=== PATIENT | female | born 1945 | race Caucasian/White ===

== ENCOUNTER → 2020-03-14 | Outpatient (CLI) | payer MEDICARE, OTHER ==
[~2020-03-14] VITALS: Ht 157.5 cm; Wt 88.5 kg
[~2020-03-14] MED LIST: ARTHRI-FLEX TA1 EACH PO; CALTRATE 600MG600 MG PO; CIMZIA400 MG/2 M IM; ELIQUIS2.5 MG PO; FLONASE ALLER15.8 ML; GABAPENTIN600 MG PO; HYDROCHLOROTHIA25 MG PO; HYDROCODON-ACE1 EAC4 PO; LEVOCETIRIZINE D5 MG PO; LOPRESSOR 25 MG25 MG PO; LORTAB 7.5-3251 EACH PO; MICARDIS40 MG PO; ORENCIA 250 MG250 MG INJ; PLAQUENIL 200200 MG PO; POTASSIUM CHLO10 ME2 PO; PREDNISONE 1 MG1 MG PO; PREDNISONE5 MG PO; SINGULAIR10 MG PO; TIZANIDINE PO; TYLENOL 8 HOUR650 MG PO; VITAMIN D250000 UNIT PO
== END ==
LOC: OPSV 11:00
DX: M06.9 Rheumatoid arthritis, unspecified (principal)
CPT/HCPCS: 96365; 96375; J0129; J1720

== ENCOUNTER → 2020-03-28 | Outpatient (CLI) | payer MEDICARE, OTHER ==
[~2020-03-28] VITALS: Ht 157.5 cm; Wt 88.5 kg
== END ==
LOC: OPSV 10:50
DX: M06.9 Rheumatoid arthritis, unspecified (principal)
CPT/HCPCS: 96365; 96375; J0129; J1720

== ENCOUNTER → 2020-04-11 | Outpatient (CLI) | payer MEDICARE, OTHER ==
[~2020-04-11] VITALS: Ht 157.5 cm; Wt 88.5 kg
== END ==
LOC: OPSV 11:00
DX: M06.9 Rheumatoid arthritis, unspecified (principal)
CPT/HCPCS: 96365; 96375; J0129; J1720

== ENCOUNTER → 2020-05-09 | Outpatient (CLI) | payer MEDICARE, OTHER ==
[~2020-05-09] VITALS: Ht 157.5 cm; Wt 88.5 kg
== END ==
LOC: OPSV 11:00
DX: M06.9 Rheumatoid arthritis, unspecified (principal)
CPT/HCPCS: 96365; 96375; J0129; J1720

== ENCOUNTER → 2020-06-02 | Outpatient (CLI) | payer MEDICARE, OTHER ==
[2020-06-02 11:46] LABS: HEMOGLOBIN 12.9 gm/dl (12.3-15.3); RED BLOOD COUNT 4.28 M/UL (4.00-5.10); WHITE BLOOD COUNT 10.1 K/UL (4.5-11.0)
== END ==
LOC: OPSV2 10:30 → EDSTATUS 10:30 → OPSV2 10:38
PROVIDERS: Orthopaedic Surgery
DX: Z01.818 Encounter for other preprocedural examination (principal); M06.9 Rheumatoid arthritis, unspecified; J98.4 Other disorders of lung; Z88.1 Allergy status to other antibiotic agents
CPT/HCPCS: 36415; 71046; 80048; 81001; 85025; 87077; 87081; 87086; 87186; 93005

== ENCOUNTER → 2020-06-14 | Outpatient (CLI) | payer MEDICARE, OTHER ==
[2020-06-14 11:20] LABS: BUN/CREATININE RATIO 20 (0-10)
== END ==
LOC: LAB 09:39
PROVIDERS: Orthopaedic Surgery
DX: Z01.812 Encounter for preprocedural laboratory examination (principal)
CPT/HCPCS: 36415; 80048; 86850; 86900; 86901

== ENCOUNTER 2020-06-15 06:16 | Day surgery (SDC) | payer MEDICARE, OTHER ==
[~2020-06-15] VITALS: Ht 157.5 cm; Wt 90.3 kg
[~2020-06-15 06:16] MED LIST changes: -FLONASE ALLER15.8 ML; -HYDROCODON-ACE1 EAC4 PO; -ORENCIA 250 MG250 MG INJ; -POTASSIUM CHLO10 ME2 PO; -SINGULAIR10 MG PO
[2020-06-15] MEDS ORDERED: POTASSIUM CHLO10 ME2 PO (07:18)
[2020-06-15] MEDS ORDERED: SINGULAIR10 MG PO (07:20)
[2020-06-15] MEDS ORDERED: FLONASE ALLER15.8 ML (07:21)
[2020-06-15] MEDS ORDERED: ORENCIA 250 MG250 MG INJ (07:22)
[2020-06-16 03:07] LABS: HEMOGLOBIN 11.2 gm/dl (12.3-15.3); RED BLOOD COUNT 3.75 M/UL (4.00-5.10); WHITE BLOOD COUNT 13.9 K/UL (4.5-11.0)
[2020-06-17 03:40] LABS: HEMOGLOBIN 10.1 gm/dl (12.3-15.3); WHITE BLOOD COUNT 13.8 K/UL (4.5-11.0)
[2020-06-17 03:44] LABS: RED BLOOD COUNT 3.33 M/UL (4.00-5.10)
[2020-06-17] MEDS ORDERED: HYDROCODON-ACE1 EAC4 PO (12:56)
[2020-06-18 05:19] LABS: HEMOGLOBIN 9.6 gm/dl (12.3-15.3); RED BLOOD COUNT 3.16 M/UL (4.00-5.10)
[2020-06-18] MEDS ORDERED: ELIQUIS2.5 MG PO (09:15)
== END 2020-06-18 13:39 | disposition home or self-care (01) ==
LOC: OR 06:16 → EDSTATUS 07:45 → M/S 14:09 → OR 06-18 13:39
PROVIDERS: Orthopaedic Surgery
DX: M06.852 Other specified rheumatoid arthritis, left hip (principal); M16.12 Unilateral primary osteoarthritis, left hip; I10 Essential (primary) hypertension; E78.5 Hyperlipidemia, unspecified; Z87.891 Personal history of nicotine dependence; Z85.3 Personal history of malignant neoplasm of breast; Z96.651 Presence of right artificial knee joint; Z88.2 Allergy status to sulfonamides; Z79.899 Other long term (current) drug therapy
CPT/HCPCS: 36415; 72170; 76000; 80048; 85025; 94640; 94760; 97110-GP-CQ; 97116-GP-CQ; 97161; 97165; 97530; 97530-GP-CQ; 97535; C1776; J0171; J0690; J1100; J2001; J2270; J2405; J2704; J2795; J3010; J3370; J7050; J7120

== ENCOUNTER → 2020-10-19 | Outpatient (CLI) | payer MEDICARE, OTHER ==
[~2020-10-19] MED LIST changes: +FLONASE ALLER15.8 ML; +HYDROCODON-ACE1 EAC4 PO; +ORENCIA 250 MG250 MG INJ; +POTASSIUM CHLO10 ME2 PO; +SINGULAIR10 MG PO
== END ==
LOC: EXRD 09-19 13:00 → KOH-I 11:17
DX: M81.0 Age-related osteoporosis without current pathological fracture (principal); M85.862 Other specified disorders of bone density and structure, left lower leg
CPT/HCPCS: 77080

== ENCOUNTER → 2020-11-18 | Outpatient (CLI) | payer MEDICARE, OTHER ==
[~2020-11-18] VITALS: Ht 157.5 cm; Wt 88.5 kg
== END ==
LOC: OPSV 10:55
DX: M06.9 Rheumatoid arthritis, unspecified (principal)
CPT/HCPCS: 96365; 96375; J0129; J1720

== ENCOUNTER → 2020-12-16 | Outpatient (CLI) | payer MEDICARE, OTHER ==
[2020-12-16 11:50] LABS: HEMOGLOBIN 13.2 gm/dl (12.3-15.3); RED BLOOD COUNT 4.65 M/UL (4.00-5.10); WHITE BLOOD COUNT 10.5 K/UL (4.5-11.0)
== END ==
LOC: OPSV 11:00
PROVIDERS: Internal Medicine
DX: M06.09 Rheumatoid arthritis without rheumatoid factor, multiple sites (principal); Z79.899 Other long term (current) drug therapy; E55.9 Vitamin D deficiency, unspecified
CPT/HCPCS: 36415; 80053; 85025; 85652; 86140; 96365; 96375; J0129; J1720

== ENCOUNTER → 2021-01-12 | Outpatient (CLI) | payer MEDICARE, OTHER ==
[2021-01-12 10:36] LABS: HEMOGLOBIN 13.1 gm/dl (12.3-15.3); RED BLOOD COUNT 4.62 M/UL (4.00-5.10); WHITE BLOOD COUNT 8.7 K/UL (4.5-11.0)
[2021-01-12 11:06] LABS: BUN/CREATININE RATIO 17 (0-10)
== END ==
LOC: LAB 09:16
PROVIDERS: Family Medicine
DX: E78.5 Hyperlipidemia, unspecified (principal); I10 Essential (primary) hypertension; E55.9 Vitamin D deficiency, unspecified
CPT/HCPCS: 36415; 80053; 80061; 84439; 84443; 85027

== ENCOUNTER → 2021-01-25 | Outpatient (CLI) | payer MEDICARE, OTHER ==
[~2021-01-25] VITALS: Ht 157.5 cm; Wt 88.5 kg
== END ==
LOC: OPSV 01-18 11:00
DX: M06.9 Rheumatoid arthritis, unspecified (principal)
CPT/HCPCS: 96365; 96375; J0129; J1720

== ENCOUNTER → 2021-03-28 | Outpatient (CLI) | payer MEDICARE, OTHER ==
[~2021-03-28] VITALS: Ht 157.5 cm; Wt 88.5 kg
== END ==
LOC: OPSV 03-01 11:00
DX: M06.9 Rheumatoid arthritis, unspecified (principal)
CPT/HCPCS: 96365; 96375; J0129; J1720

== ENCOUNTER → 2021-10-13 | Outpatient (CLI) | payer MEDICARE, OTHER | LOC: KOH-I 09:12 | DX: M79.605 Pain in left leg (principal) | CPT/HCPCS: 93971 ==